=== PATIENT | male | born 1985 | race Asian ===

== ENCOUNTER 2021-08-13 07:18 | Day surgery (SDC) | payer OTHER ==
[~2021-08-13] VITALS: Ht 167.6 cm; Wt 90.6 kg
[~2021-08-13 07:18] MED LIST: NS 1,000 ML IV ONE; VITMTA PO
[2021-08-13] MEDS ORDERED: propofoL 200 MG/20 ML VIAL As Ordered ONE (08:11)
[2021-08-13] MEDS ORDERED: LIDOCAINE 2% 100MG/5ML SDV (FOR ANES.) As Ordered ONE (08:11)
--- NOTE | 2021-08-13 09:20 | ROOR ---
Patient Name: Procedure Date: 08/13/2021 9:03 AM Date of : 1985 Age: 36 Room: [facility] Gender: Male Note Status: Finalized Procedure: Total Colonoscopy to Cecum Indications: Rectal bleeding Providers: Pranav Ernandez MD Referring MD: CONNIE ROSALES MD Requesting Provider: Medicines: Monitored Anesthesia Care Complications: No immediate complications. Procedure: Pre-Anesthesia Assessment: - The heart rate, respiratory rate, oxygen saturations, blood pressure, adequacy of pulmonary ventilation, and response to care were monitored throughout the procedure. The Colonoscope was introduced through the anus and advanced to the cecum, identified by appendiceal orifice and ileocecal valve. The colonoscopy was performed without difficulty. The patient tolerated the procedure well. The quality of the bowel preparation was good. Findings: The perianal and digital rectal examinations were normal. Non-bleeding internal hemorrhoids were found during retroflexion. The hemorrhoids were small and Grade I (internal hemorrhoids that do not prolapse). No other significant abnormalities were identified in a careful examination of the remainder of the colon. The exam was otherwise without abnormality on direct and retroflexion views. Impression: - Non-bleeding internal hemorrhoids. - The examination was otherwise normal on direct and retroflexion views. - No specimens collected. - The exam was otherwise normal to the cecum. Recommendation: - Patient has a contact number available for emergencies. The signs and symptoms of potential delayed complications were discussed with the patient. Return to normal activities tomorrow. Written discharge instructions were provided to the patient. - High fiber diet. - Discharge patient to home. - Continue present medications. - Repeat colonoscopy in 7 years for screening purposes. - Return to referring physician. - The findings and recommendations were discussed with the patient. Procedure Code(s): --- Professional --- 00296, Colonoscopy, flexible; diagnostic, including collection of specimen(s) by brushing or washing, when performed (separate procedure) Diagnosis Code(s): --- Professional --- K64.0, First degree hemorrhoids K62.5, Hemorrhage of anus and rectum CPT copyright 2019 [employer]. All rights reserved. The codes documented in this report are preliminary and upon salesperson men[employer] boys' [employer] review may be revised to meet current compliance requirements. Pranav Ernandez MD Pranav Ernandez MD 08/13/2021 9:19:50 AM Electronically signed by Pranav Ernandez MD Number of Addenda: 0 Note Initiated On: 08/13/2021 9:03 AM Estimated Blood Loss: Estimated blood loss: none.
[2021-08-13 09:40] VITALS: BP 128/75
== END 2021-08-13 09:55 | disposition home or self-care (01) ==
LOC: M OPP 07:18
PROVIDERS: ATTEND Internal Medicine Gastroenterology
DX: K62.5 Hemorrhage of anus and rectum (principal); K64.0 First degree hemorrhoids; Z79.899 Other long term (current) drug therapy